=== PATIENT | female | born 1980 | race Hispanic/Latino ===

== ENCOUNTER 2024-01-28 17:27 | Emergency (ER) | payer BC, SELFPAY ==
--- NOTE | ~2024-01-28 | US_ITS ---
Limited ABDOMINAL ULTRASOUND Ordering provider: Rosa Guerrero PA-C History: . RUQ pain . Comparison: None. FINDINGS: LIVER: Normal size with increased echotexture suggestive of fat infiltration. No focal hepatic lesion s or perihepatic fluid collections are identified. Portal vein flow is normal. GALLBLADDER: Underdistended. No gallstones. Wall thickness is 3.2 mm BILIARY DUCTS: No evidence for intra or extrahepatic biliary dilation. Common bile duct measures 4.2 mm in diameter which is within normal limits. PANCREAS: Normal echotexture and size. FREE FLUID: None. IMPRESSION: 1. Fat infiltration of the liver. Under distended gallbladder. Otherwise, unremarkable limited ultras ound of the abdomen. Reviewed, dictated and finalized at location A. IMPRESSION: 1. Fat infiltration of the liver. Under distended gallbladder. Otherwise, unrem arkable limited ultrasound of the abdomen.
--- NOTE | ~2024-01-28 | CT_ITS ---
CT abdomen pelvis w con Ordering provider: Willem Potter MD History: 43 years Female with . RIGHT ABDOMINAL PAIN . Comparison: None. Technique: CT abdomen and pelvis with IV and without oral contrast. Automated exposure control and it erative reconstruction technique were employed. The dose-length product was 728.12 mGy-cm. 100 mL Omn ipaque 350 was given IV. Findings: VISUALIZED LOWER CHEST: Normal. UPPER ABDOMINAL ORGANS: Liver: Normal. Gallbladder: Normal. Spleen: Normal. Stomach/duodenum: Small sliding hernia Pancreas: Normal. Adrenals: Normal. Kidneys: Normal. PELVIC ORGANS: The bladder is normal. Uterus: Slightly bulky. Left ovarian cyst measuring 3.6 cm is noted. BOWEL AND MESENTERY: Colon: No evidence of diverticulitis. Appendix is not demonstrated. Small Bowel: Normal. No obstruction. Peritoneum/mesentery: No free air. Trace of Free fluid. No mesenteric lymphadenopathy. RETROPERITONEUM: Mild atheromatous disease of the abdominal aorta. No retroperitoneal lymphadenopat hy. MUSCULOSKELETAL: Superficial soft tissues: The superficial soft tissues are normal. Bones: Normal spine. IMPRESSION: 1. No evidence of appendicitis, diverticulitis or intestinal obstruction. 2. Constipation 3. Left ovarian cyst measuring 3.6 cm. 4. Trace of fluid in the pelvis which can be normal. Reviewed, dictated and finalized at location A.
[2024-01-28 17:41] VITALS: BP 155/80; PULSE 81; RESP 18; TEMP 36.3; O2SAT 100
--- NOTE | 2024-01-28 17:49 | ED.ABDPAIN ---
HPI - Abdominal Pain General Chief Complaint: Abdominal Pain Stated Complaint: right side pain Time Seen by Provider: 01/28/24 17:50 Focused HPI: This is a 43-year-old female that presents to the emergency department for right upper quadrant pain. Radiating to the right flank. This is been ongoing for the last week. She was evaluated at another ER and diagnosed with pneumonia. Her pain has persisted. Denies fevers. GENERAL: Uncomfortable, well-nourished, and in no acute distress. HEAD: Normocephalic, atraumatic. CHEST: Clear to auscultation. ?No respiratory distress. HEART: Regular rate and rhythm.? NEURO: ?Alert and oriented x3. Patient screened in triage and initial orders placed.? ?Additional care and disposition to be based upon?diagnostic testing and treatment. Related Data Allergies Allergy/AdvReac Type Severity Reaction Status Date / Time No Known Allergies Allergy Verified 01/28/24 17:49 Course Vital Signs Vital signs: Vital Signs Temperature 97.3 F L 01/28/24 17:41 Pulse Rate 81 01/28/24 17:41 Respiratory Rate 18 01/28/24 17:41 Blood Pressure 155/80 H 01/28/24 17:41 Pulse Oximetry 100 01/28/24 17:41 Oxygen Delivery Room Air 01/28/24 17:41 Temperature 97.3 F L 01/28/24 17:41 Pulse Rate 81 01/28/24 17:41 Respiratory Rate 18 01/28/24 17:41 Blood Pressure 155/80 H 01/28/24 17:41 Pulse Oximetry 100 01/28/24 17:41 Oxygen Delivery Room Air 01/28/24 17:41 Discharge Plan Discharge Instructions: Antibiotic Form Follow-up/Referrals: PHYSICIAN,MOTORBOAT MECHANIC [Primary Care Provider] -
[2024-01-28 18:20] LABS: BEDSIDEPREGUCG Negative (Negative)
[2024-01-28 18:29] LABS: Basophils Absolute Auto 0.1 K/mm3 (0.0-0.1); Basophils Percent Auto 0.6 % (0.2-1.2); Eosinophils Absolute Auto 0.2 K/mm3 (0-0.3); Eosinophils Percent Auto 1.8 % (0-4.4); Hematocrit 38.1 % (37.0-47.0); Hemoglobin 12.8 g/dL (12.0-15.0); Immature Granulocyte Absolute 0.02 K/mm3 (0.00-0.031); Immature Granulocyte Percent A 0.2 % (0-0.5); Lymphocytes Absolute Auto 2.94 K/mm3 (0.9-3.2); Lymphocytes Percent Auto 31.6 % (18.3-44.2); Mean Corpuscular HGB Conc 33.6 g/dl (32-36); Mean Corpuscular Hemoglobin 29.3 pg (26-34); Mean Corpuscular Volume 87.2 fl (80-100); Mean Platelet Volume 11.3 fl (7.4-10.4); Monocytes Absolute Auto 0.5 K/mm3 (0.1-0.6); Monocytes Percent Auto 5.3 % (2.6-8.5); Neutrophils Absolute Auto 5.6 K/mm3 (1.3-6.7); Neutrophils Percent Auto 60.5 % (45.5-73.1); Platelet Count Result 239 k/mm3 (150-375); Red Blood Count 4.37 M/mm3 (4.2-5.4); White Blood Count 9.3 K/mm3 (4.5-10.0)
[2024-01-28 18:39] LABS: Alanine Aminotransferase 27 U/L (6-35); Albumin Level 4.8 g/dL (3.5-5.1); Alkaline Phosphatase 43 U/L (38-126); Anion Gap 9 mmol/L (4-12); Aspartate Amino Transferase 24 U/L (14-36); Bilirubin,Total 0.4 mg/dL (0.2-1.3); Blood Urea Nitrogen 14 mg/dL (7-17); Calcium 9.7 mg/dL (8.4-10.2); Carbon Dioxide 29 mmol/L (22-30); Chloride 101 mmol/L (98-107); Estimated CRCL calculation 94 ml/min; Estimated Glomerular Filt Rate > 60; Glucose 104 mg/dL (65-110); Lipase 64 U/L (23-300); Potassium 3.8 mmol/L (3.4-5.0); Sodium 139 mmol/L (137-145)
[2024-01-28 18:42] LABS: Add Urine Microscopic? YES; Appearance Urine Cloudy (Clear); Bacteria Urine 4+ /hpf; Bilirubin Urine Negative (Negative); Blood Urine Negative (Negative); Color Urine Yellow (Yellow); Glucose Urine UA Negative (Negative); Ketones Urine Negative (Negative); Leukocyte Esterase Ur Negative LEU/UL (Negative); Need Manual Microscopic Reviewed; Nitrate Urine Negative (Negative); Protein Urine Negative (Negative); Specific Grav Ur 1.018 (1.001-1.035); Squamous Epithelial Cell Urine Few /hpf (Few); Urobilinogen Urine 0.2 mg/dL (<2.0); WBC Urine 21-50 /hpf (0-3); pH Urine 5.5 (5.0-9.0)
--- NOTE | 2024-01-28 20:06 | ED_ITS ---
HPI - Abdominal Pain General Chief Complaint: Abdominal Pain Stated Complaint: right side pain Time Seen by Provider: 01/28/24 17:50 Source: patient Mode of arrival: ambulatory Limitations: no limitations History of Present Illness HPI narrative: 43 YEARS OLD FEMALE CAME TO THE ED COMPLAINING OF RIGHT UPPER QUADRANT PAIN FOR THE LAST 10 DAYS RADIATING TO THE RIGHT FLANK AREA. PATIENT DENIES ANY FEVER OR CHILLS, REPORTS SOME NAUSEA. PATIENT DOES SPEAK [place], THE HISTORY PROVIDED BY HER SON WHO IS BILINGUAL. Related Data Allergies Allergy/AdvReac Type Severity Reaction Status Date / Time No Known Allergies Allergy Verified 01/28/24 17:49 Review of Systems Review of Systems: All systems reviewed & are unremarkable except as noted in HPI and below Exam Narrative: GENERAL APPEARANCE: WELL-DEVELOPED, WELL-NOURISHED SKIN: NORMAL COLOR HEAD: NORMOCEPHALIC, NONTRAUMATIC EYES: CLEAR CONJUNCTIVA ENT: OROPHARYNX NORMAL, EARS NORMAL, NOSE NORMAL NECK: SUPPLE, NONTENDER CHEST AND RESPIRATORY: AIRWAY PATENT, NO RESPIRATORY DISTRESS, NO ACCESSORY MUSCLE USE HEART: REGULAR RATE/RHYTHM ABDOMEN: SOFT, NONTENDER, NO ORGANOMEGALY, QUIET BOWEL SOUNDS VASCULAR: NORMAL PERIPHERAL PULSES, NORMAL CAPILLARY REFILL. MUSCULOSKELETAL: NORMAL RANGE OF MOTION, NONTENDER BACK NEUROLOGIC: ALERT AND ORIENTED ?3, MATERIALS SUPERVISOR IS NORMAL TESTED, NO GROSS MOTOR DEFICIT Course Vital Signs Vital signs: Vital Signs Temperature 36.3 C L 01/28/24 17:41 Pulse Rate 81 01/28/24 17:41 Respiratory Rate 18 01/28/24 17:41 Blood Pressure 155/80 H 01/28/24 17:41 Pulse Oximetry 100 01/28/24 17:41 Oxygen Delivery Room Air 01/28/24 17:41 Temperature 36.3 C L 01/28/24 17:41 Pulse Rate 84 01/28/24 20:26 Respiratory Rate 16 01/28/24 20:26 Blood Pressure 144/78 H 01/28/24 20:26 Pulse Oximetry 100 01/28/24 20:26 Oxygen Delivery Room Air 01/28/24 17:41 MDM - Abdominal Pain MDM Narrative Medical decision making narrative: PATIENT PRESENTS WITH RIGHT UPPER QUADRANT PAIN VITAL SIGNS ARE STABLE PHYSICAL EXAMINATION SHOWING SLIGHT TENDERNESS IN THE RIGHT ABDOMEN, NO GUARDING OR REBOUND DIFFERENTIAL DIAGNOSIS INCLUDE CHOLECYSTITIS, APPENDICITIS, URINARY TRACT INFECTION, COLITIS, DIVERTICULITIS, CONSTIPATION, MUSCULAR PAIN. BLOOD WORKUP TODAY SHOWED WBC OF 9.3, URINALYSIS POSITIVE FOR INFECTION CT ABDOMEN AND PELVIS WITH IV CONTRAST SHOWED Lab Data 01/28/24 18:17 01/28/24 18:17 Labs: Lab Results 01/28/24 01/28/24 Range/Units 18:17 18:18 WBC 9.3 (4.5-10.0) K/mm3 RBC 4.37 (4.2-5.4) M/mm3 Hgb 12.8 (12.0-15.0) g/dL Hct 38.1 (37.0-47.0) % MCV 87.2 (80-100) fl MCH 29.3 (26-34) pg MCHC 33.6 (32-36) g/dl RDW 13.0 (11.5-14.5) % Plt Count 239 (150-375) k/mm3 MPV 11.3 H (7.4-10.4) fl Immature Gran % (Auto) 0.2 (0-0.5) % Neut % (Auto) 60.5 (45.5-73.1) % Lymph % (Auto) 31.6 (18.3-44.2) % [place] % (Auto) 5.3 (2.6-8.5) % Eos % (Auto) 1.8 (0-4.4) % Baso % (Auto) 0.6 (0.2-1.2) % Lymph # (Auto) 2.94 (0.9-3.2) K/mm3 [place] # (Auto) 0.5 (0.1-0.6) K/mm3 Eos # (Auto) 0.2 (0-0.3) K/mm3 Baso # (Auto) 0.1 (0.0-0.1) K/mm3 Abs Immat Gran (auto) 0.02 (0.00-0.031) K/mm3 Absolute Neuts (auto) 5.6 (1.3-6.7) K/mm3 Absolute Nucleated RBC 0.000 (0.0-0.012) K/mm3 Nucleated RBC % 0.0 (0.0-0.2) % Sodium 139 (137-145) mmol/L Potassium 3.8 (3.4-5.0) mmol/L Chloride 101 (98-107) mmol/L Carbon Dioxide 29 (22-30) mmol/L Anion Gap 9 (4-12) mmol/L BUN 14 (7-17) mg/dL Creatinine 0.70 (0.7-1.0) mg/dL Estim Creat Clear Calc 94 ml/min Estimated GFR > 60 (59 - ) Glucose 104 (65-110) mg/dL Calcium 9.7 (8.4-10.2) mg/dL Total Bilirubin 0.4 (0.2-1.3) mg/dL AST 24 (14-36) U/L ALT 27 (6-35) U/L Alkaline Phosphatase 43 (38-126) U/L Total Protein 9.0 H (6.3-8.2) g/dL Albumin 4.8 (3.5-5.1) g/dL Lipase 64 (23-300) U/L Urine Color Yellow (Yellow) Urine Appearance Cloudy H (Clear) Urine pH 5.5 (5.0-9.0) Ur Specific [place] 1.018 (1.001-1.035) Urine Protein Negative (Negative) mg/dL Urine Glucose (UA) Negative (Negative) mg/dL Urine Ketones Negative (Negative) mg/dL Ur Blood (Man) Negative (Negative) Urine Nitrate Negative (Negative) Urine Bilirubin Negative (Negative) Urine Urobilinogen 0.2 (<2.0) mg/dL Add Ur Microanalysis Reviewed Leukocyte Esterase Rfl Negative (Negative) MYRA/UL Urine RBC 11-20 H (0-2) /hpf Urine WBC 21-50 H (0-3) /hpf Ur Squamous Epith Cells Few (Few) /hpf Urine Bacteria 4+ H /hpf Urine Casts 3-5 POC Urine HCG, Qual Negative (Negative) Imaging Data Radiologist's impression: ITS Impressions Abdomen Ultrasound 01/28/24 19:43 IMPRESSION: 1. Fat infiltration of the liver. Under distended gallbladder. Otherwise, unremarkable limited ultrasound of the abdomen. Abdomen/Pelvis CT 01/28/24 21:42 IMPRESSION: 1. No evidence of appendicitis, diverticulitis or intestinal obstruction. 2. Constipation 3. Left ovarian cyst measuring 3.6 cm. 4. Trace of fluid in the pelvis which can be normal. Critical Care Time Critical Care Time Critical Care Time: No Discharge Plan Discharge Clinical Impression: Urinary tract infection, Constipation, Cyst of left ovary Patient Disposition: Home, Self-Care Condition: Stable Instructions: Constipation (DC), Urinary Tract Infection in Women (DC) Additional Instructions: RETURN IF SYMPTOMS ARE WORSENING , CALL YOUR FAMILY PHYSICIAN FOR APPOINTMENT, TAKE TYLENOL NEEDED FOR ACHES AND PAIN, CONTINUE HOME MEDICATIONS. Prescriptions: New nitrofurantoin monohyd/m-cryst [Macrobid] 100 mg capsule 100 mg PO Q12H 5 Days Qty: 10 0RF Rx Instructions: must administer with a meal/food polyethylene glycol 3350 [Miralax] 17 gram powder in packet 17 g PO QID Qty: 30 0RF Follow-up/Referrals: PHYSICIAN,TELESALES REPRESENTATIVE [Non-Staff] - Yusef Jain MD [Physician] - 02/03/24
[2024-01-28] MEDS: SODIUM CHLORIDE 0.9% IV 1,000 ML 999 ML IV CONT (20:25)
[2024-01-28 20:26] VITALS: BP 144/78; PULSE 84; RESP 16; O2SAT 100
[2024-01-28 22:20] VITALS: BP 130/80; PULSE 82; RESP 15; O2SAT 98
[2024-01-28 22:21] VITALS: BP 130/84; PULSE 86; RESP 15; O2SAT 98
== END 2024-01-28 22:22 | disposition home or self-care (01) ==
PROVIDERS: Physician Assistant; Emergency Provider Emergency Medicine
DX: N39.0 Urinary tract infection, site not specified (principal); K59.00 Constipation, unspecified; N83.202 Unspecified ovarian cyst, left side
CPT/HCPCS: 36415; 74177; 76705; 80053; 81001; 81025; 83690; 85025; 87086; 96360; 99284; J7030; Q9967